=== PATIENT | male | born 1985 | race Caucasian/White ===

== ENCOUNTER 2017-05-15 12:58 | Emergency (ER) | payer OTHER ==
[2017-05-15 13:12] VITALS: BP 136/77
--- NOTE | 2017-05-15 13:58 | UC ---
Laceration HPI - HPI Summary HPI Summary: The patient comes in today for: 1. Laceration of the thenar eminence of the left thumb. Onset: 2 hours ago. Palliative/provocative: Nothing. Quality: No pain. Region: Left thenar eminence. Severity: 0/10 Time: constant. Associated symptoms: Numbness: None. He has full range of motion of his thumb. Tetanus vaccine: He has not had one since age 12. * - History Of Current Complaint Chief Complaint: UCLaceration Stated Complaint: LEFT HAND LACERATION Time Seen by Provider: 05/15/17 13:52 Hx Obtained From: Patient, Family/[employer] - Allergies/Home Medications Allergies/Adverse Reactions: Allergies Allergy/AdvReac Type Severity Reaction Status Date / Time No Known Allergies Allergy Verified 05/15/17 13:06 Home Medications: Home Medications NK [No Home Medications Reported] 05/15/17 [History Confirmed 05/15/17] PMH/Surg Hx/FS Hx/Imm Hx Previously Healthy: Yes - Surgical History Surgical History: None - Family History Known Family History: Positive: Hypertension, Diabetes - Social History Lives: With Family Alcohol Use: Occasionally Substance Use Type: None Smoking Status (MU): Light Every Day Tobacco Smoker Type: Cigarettes Amount Used/How Often: 1 pack every 3 days - Immunization History Most Recent Tetanus Shot: age 12 Review of Systems Constitutional: Negative Skin: Negative Eyes: Negative ENT: Negative Respiratory: Negative Cardiovascular: Negative Gastrointestinal: Negative Genitourinary: Negative All Other Systems Reviewed And Are Negative: Yes Physical Exam Triage Information Reviewed: Yes Appearance: Well-Appearing, No Pain Distress, Well-Nourished Vital Signs: Initial Vital Signs Temp 98.8 F 05/15/17 13:07 Pulse 82 05/15/17 13:07 Resp 16 05/15/17 13:07 BP 136/77 05/15/17 13:07 Pulse Ox 100 05/15/17 13:07 Vital Signs Reviewed: Yes Eyes: Positive: Conjunctiva Clear. Negative: Discharge ENT: Positive: Hearing grossly normal. Negative: Pharyngeal erythema, Nasal congestion, Nasal drainage, TM bulging, TM dull, TM red, Tonsillar swelling, Tonsillar exudate Dental: Negative: Gross Decay/Caries @, Dental Fracture @ Neck: Positive: Supple, Nontender, No Lymphadenopathy. Negative: Nuchal Rigidity Respiratory: Positive: Chest non-tender, Lungs clear, No respiratory distress, No accessory muscle use. Negative: Rhonchi, Wheezing Cardiovascular: Positive: RRR, No Murmur Abdomen Description: Positive: Nontender, No Organomegaly, Soft. Negative: Distended, Guarding Musculoskeletal: Positive: Strength Intact, ROM Intact, No Edema Neurological: Positive: Alert, Muscle Tone Normal Psychological: Positive: Age Appropriate Behavior, Consolable Skin: Positive: Other - Laceration of the left thenar eminence. Laceration Repair - Laceration Repair 1 Description: Linear Laceration Size After Repair: Length (cm) - 1, Width (mm) - 3, Depth (mm) - 3 Anesthesia Used: 2.0% Lido Additive Used (in ml): Epi Cleansing Completed Via Routine Prep: Yes Irrigation With Pressure Irrigation Device: Yes Closure Material: Sutures Closure Method: Single Layer Suture Of: Skin Suture Type: Nylon - Four 4-0 sutures in the left thenar eminence. Laceration Course/Dx - Differential Dx - Laceration/Wound Provider Diagnoses: Laceration of the left thenar eminence Discharge - Discharge Plan Condition: Stable Disposition: HOME Patient Education Materials: Laceration (ED), Care For Your Stitches (ED) Referrals: Crow Ogden MD [Primary Care Provider] - Additional Instructions: Please see your primary care provider or us in 12-14 days to remove your sutures. Inspect the wound daily cleaning with hydrogen peroxide and a Q-tip. Inspect for increasing redness, soreness, drainage and swelling. If these get worse, please be seen again for re- evaluation. If you do well, you may return when the sutures need to be taken out. After cleaning and inspecting, please apply Polysporin anti-bacterial ointment and a non-stick dressing until the next day.
[2017-05-15] MEDS ORDERED: Tetan/Diph/Pertus SYR(Tdap)* 0.5 ML SYR(BOOSTRIX) use SYR IM ONE (13:59)
[2017-05-15] MEDS ORDERED: Lidocaine 2% W/EPI 1:100,000* 20 ML MDV INJ ONE (14:05)
== END 2017-05-15 15:00 | disposition home or self-care (01) ==
LOC: UCCORT 12:58
DX: S61.012A Laceration without foreign body of left thumb without damage to nail, initial encounter (principal); X58.XXXA Exposure to other specified factors, initial encounter; Z23 Encounter for immunization; F17.210 Nicotine dependence, cigarettes, uncomplicated
CPT/HCPCS: 12001; 90471; 90715; 99201; G0463

== ENCOUNTER 2022-09-01 12:44 | Inpatient (IN) ==
[2022-09-01 13:21] LABS: PCO2 Arterial 68 mmHg (35-45); PO2 Arterial 85 mmHg (80-100)
[2022-09-01 13:27] LABS: ABS Eosinophils 0.1 10^3/ul (0-0.6); ABS Lymphocytes 1.3 10^3/ul (1.0-4.8); ABS Monocytes 0.8 10^3/ul (0-0.8); ABS Neutrophils 7.8 10^3/ul (1.5-7.7); Eosinophil % 0.9 %; Hematocrit 47 % (42-52); Hemoglobin 14.5 g/dL (14.0-18.0); Lymphocyte % 13.2 %; Mean Corpuscular HGB Conc 31 g/dL (31-36); Mean Corpuscular Hemoglobin 28 pg (27-31); Mean Corpuscular Volume 92 fL (80-94); Mean Platelet Volume 7.2 fL (7.4-10.4); Platelet Count 245 10^3/uL (150-450); Red Blood Count 5.12 10^6 /uL (4.18-5.48); Red Cell Distribution Width 16 % (10-15)
[2022-09-01 13:47] LABS: High Sens Troponin Baseline 19 pg/mL (<20)
[2022-09-01 13:53] LABS: ALT 18 U/L (7-52); AST 16 U/L (13-39); Albumin 3.7 g/dL (3.2-5.2); Albumin/Globulin Ratio 1.6 (1-3); Alcohol, S < 13 mg/dL (<13); Alkaline Phosphatase 68 U/L (35-149); Anion Gap 5 mmol/L (2-11); Blood Urea Nitrogen 18 mg/dL (6-24); CO2 Carbon Dioxide 33 mmol/L (22-32); Calcium 8.5 mg/dL (8.6-10.3); Chloride 102 mmol/L (101-111); Globulin 2.3 g/dL (2-4); Glucose 101 mg/dL (70-100); Lipase 15 U/L (11.0-82.0); Magnesium 1.9 mg/dL (1.9-2.7); Potassium 4.6 mmol/L (3.5-5.0); Sodium 140 mmol/L (135-145); eGFR CKD-EPI 81.5 (>60)
[2022-09-01 15:07] LABS: High Sensitivity Troponin 1 Hr 23 pg/mL (<20)
[2022-09-01] MEDS ORDERED: Magnesium Sulfate IV 1GM/100ML 1 GM/100 ML BAG IV ONE (19:06)
[2022-09-01 21:40] LABS: PO2 Arterial 133 mmHg (80-100)
[2022-09-01 21:46] LABS: PCO2 Arterial 84 mmHg (35-45)
[2022-09-01] MEDS ORDERED: LORazepam 2 mg VIAL 1 ml ONE (23:09)
[2022-09-01] MEDS ORDERED: LORazepam 2 mg VIAL 1 ml IV PUSH ONE (23:10)
[2022-09-01 23:39] LABS: PO2 Arterial 83 mmHg (80-100)
[2022-09-01 23:45] LABS: PCO2 Arterial 100 mmHg (35-45)
[2022-09-02] MEDS: Albuterol/Ipratropium NEB.SOL (2.5/0.5 MG) 3 ML NEB.SOLN INH SCH ×5 (01:33→09:24)
[2022-09-02 02:42] LABS: PO2 Arterial 95 mmHg (80-100)
[2022-09-02 02:44] LABS: PCO2 Arterial 75 mmHg (35-45)
[2022-09-02] MEDS ORDERED: methylPREDNISolone SOD SUCC 125 mg 2 ML VIAL IV ONE (02:52)
[2022-09-02 06:33] LABS: PO2 Arterial 105 mmHg (80-100)
[2022-09-02 06:36] LABS: PCO2 Arterial 85 mmHg (35-45)
[2022-09-02] MEDS ORDERED: Simvastatin 10 mg TAB (NF) PO SCH (09:00)
[2022-09-02] MEDS ORDERED: Albuterol/Ipratropium NEB.SOL (2.5/0.5 MG) 3 ML NEB.SOLN INH PRN (09:11)
[2022-09-02 10:36] LABS: PCO2 Arterial 66 mmHg (35-45); PO2 Arterial 148 mmHg (80-100)
[2022-09-02 11:25] LABS: ABS Lymphocytes 0.3 10^3/ul (1.0-4.8); ABS Monocytes 0.1 10^3/ul (0-0.8); ABS Neutrophils 9.3 10^3/ul (1.5-7.7); Hematocrit 46 % (42-52); Hemoglobin 13.9 g/dL (14.0-18.0); Lymphocyte % 3.1 %; Mean Corpuscular HGB Conc 30 g/dL (31-36); Mean Corpuscular Hemoglobin 28 pg (27-31); Mean Corpuscular Volume 92 fL (80-94); Mean Platelet Volume 7.2 fL (7.4-10.4); Platelet Count 227 10^3/uL (150-450); Red Blood Count 4.96 10^6 /uL (4.18-5.48); Red Cell Distribution Width 16 % (10-15); White Blood Count 9.7 10^3/uL (3.5-10.8)
[2022-09-02 12:02] LABS: Albumin 3.7 g/dL (3.2-5.2); Albumin/Globulin Ratio 1.6 (1-3); Calcium 8.8 mg/dL (8.6-10.3); Globulin 2.3 g/dL (2-4); Magnesium 1.9 mg/dL (1.9-2.7); Total Bilirubin 0.8 mg/dL (0.2-1.0); eGFR CKD-EPI 86.8 (>60)
[2022-09-02 12:03] LABS: Potassium 5.2 mmol/L (3.5-5.0)
[2022-09-02 12:16] LABS: TSH Ultra Thyroid Stim Horm 1.2 mcIU/mL (0.34-5.60)
[2022-09-02] MEDS ORDERED: Magnesium Sulfate 2 gm BAG 2 GM/50 ML BAG IVPB ONE (14:18)
[2022-09-02] MEDS ORDERED: Dextrose 50% Syringe 50 ml 25 GM/50 ML SYRINGE IV PUSH ONE (14:30)
[2022-09-02] MEDS: Heparin 5000 UNITS/ML 1 mL VIAL SUBCUT SCH (21:20)
[2022-09-02 23:14] LABS: Calcium 8.9 mg/dL (8.6-10.3); eGFR CKD-EPI 93.8 (>60)
[2022-09-02 23:15] LABS: Potassium 5.1 mmol/L (3.5-5.0)
[2022-09-03 04:37] LABS: ABS Lymphocytes 1.1 10^3/ul (1.0-4.8); ABS Monocytes 1.1 10^3/ul (0-0.8); ABS Neutrophils 10.4 10^3/ul (1.5-7.7); Eosinophil % 0.1 %; Hematocrit 47 % (42-52); Hemoglobin 14.3 g/dL (14.0-18.0); Lymphocyte % 8.4 %; Mean Corpuscular HGB Conc 31 g/dL (31-36); Mean Corpuscular Hemoglobin 28 pg (27-31); Mean Corpuscular Volume 92 fL (80-94); Mean Platelet Volume 7.2 fL (7.4-10.4); Platelet Count 242 10^3/uL (150-450); Red Blood Count 5.05 10^6 /uL (4.18-5.48); Red Cell Distribution Width 16 % (10-15); White Blood Count 12.7 10^3/uL (3.5-10.8)
[2022-09-03 04:59] LABS: Blood Urea Nitrogen 24 mg/dL (6-24); CO2 Carbon Dioxide 33 mmol/L (22-32); Calcium 9.1 mg/dL (8.6-10.3); Chloride 101 mmol/L (101-111); Glucose 119 mg/dL (70-100); Magnesium 2.1 mg/dL (1.9-2.7); Sodium 139 mmol/L (135-145); eGFR CKD-EPI 82.3 (>60)
[2022-09-03 05:02] LABS: Anion Gap 5 mmol/L (2-11)
[2022-09-03] MEDS: Heparin 5000 UNITS/ML 1 mL VIAL SUBCUT SCH ×3 (06:01→21:57)
[2022-09-03 06:13] LABS: PCO2 Arterial 83 mmHg (35-45); PO2 Arterial < 38 mmHg (80-100)
[2022-09-03] MEDS ORDERED: SODIUM ZIRCONIUM CYCLOSILICATE 5 GM PACKET PO SCH ×2 (09:00)
[2022-09-03 18:15] LABS: Calcium 8.8 mg/dL (8.6-10.3); eGFR CKD-EPI 81.5 (>60)
[2022-09-03 18:21] LABS: Potassium 5.4 mmol/L (3.5-5.0)
[2022-09-03] MEDS: SODIUM ZIRCONIUM CYCLOSILICATE 5 GM PACKET PO SCH (20:49)
[2022-09-04] MEDS: Pantoprazole VIAL 40 MG VIAL IV SCH (03:10)
[2022-09-04] MEDS ORDERED: Ondansetron 4 mg VIAL 2 MG/ML 2 ml VIAL IV ONE ×2 (04:19→06:33)
[2022-09-04 05:59] LABS: Hematocrit 49 % (42-52); Mean Corpuscular HGB Conc 31 g/dL (31-36); Mean Corpuscular Hemoglobin 28 pg (27-31); Mean Corpuscular Volume 92 fL (80-94); Mean Platelet Volume 7.6 fL (7.4-10.4); Platelet Count 241 10^3/uL (150-450); Red Blood Count 5.37 10^6 /uL (4.18-5.48); Red Cell Distribution Width 16 % (10-15); White Blood Count 11.4 10^3/uL (3.5-10.8)
[2022-09-04] MEDS: Heparin 5000 UNITS/ML 1 mL VIAL SUBCUT SCH ×3 (05:59→21:00)
[2022-09-04 06:01] LABS: Venous Bicarbonate HCO3 29.3 mmol/L (24-28)
[2022-09-04 07:02] LABS: eGFR CKD-EPI 80.7 (>60)
[2022-09-04 07:04] LABS: Potassium 5.5 mmol/L (3.5-5.0)
[2022-09-04] MEDS ORDERED: Al Hydrox/Mg Hydrox/Simet LIQ 30 ML UDC PO PRN (08:18)
[2022-09-04] MEDS: Famotidine IV 10 MG/ML 2 ml VIAL (20 mg) IV SLOW PU SCH (09:37)
[2022-09-04] MEDS: SODIUM ZIRCONIUM CYCLOSILICATE 5 GM PACKET PO SCH ×2 (10:26→15:18)
[2022-09-04] MEDS: SODIUM ZIRCONIUM CYCLOSILICATE 10 GM PACKET PO SCH (21:00)
[2022-09-05 05:19] LABS: ABS Basophils 0.1 10^3/ul (0-0.2); ABS Eosinophils 0.1 10^3/ul (0-0.6); ABS Lymphocytes 1.1 10^3/ul (1.0-4.8); ABS Monocytes 1.2 10^3/ul (0-0.8); ABS Neutrophils 8.1 10^3/ul (1.5-7.7); Eosinophil % 0.9 %; Hematocrit 50 % (42-52); Hemoglobin 15.6 g/dL (14.0-18.0); Lymphocyte % 10.3 %; Mean Corpuscular HGB Conc 31 g/dL (31-36); Mean Corpuscular Hemoglobin 28 pg (27-31); Mean Corpuscular Volume 91 fL (80-94); Mean Platelet Volume 7.5 fL (7.4-10.4); Nucleated Red Blood Cells % 0.1; Platelet Count 244 10^3/uL (150-450); Red Blood Count 5.48 10^6 /uL (4.18-5.48); Red Cell Distribution Width 16 % (10-15); White Blood Count 10.5 10^3/uL (3.5-10.8)
[2022-09-05 05:56] LABS: ALT 74 U/L (7-52); Albumin 3.6 g/dL (3.2-5.2); Albumin/Globulin Ratio 1.6 (1-3); Alkaline Phosphatase 85 U/L (35-149); Blood Urea Nitrogen 36 mg/dL (6-24); CO2 Carbon Dioxide 32 mmol/L (22-32); Calcium 8.9 mg/dL (8.6-10.3); Chloride 96 mmol/L (101-111); Globulin 2.3 g/dL (2-4); Glucose 108 mg/dL (70-100); Sodium 136 mmol/L (135-145); Total Protein 5.9 g/dL (6.4-8.9); eGFR CKD-EPI 79.1 (>60)
[2022-09-05 06:00] LABS: Anion Gap 8 mmol/L (2-11)
[2022-09-05 06:24] LABS: Potassium, Whole Blood 4.7 mmol/L (3.4-4.5)
[2022-09-05] MEDS: Heparin 5000 UNITS/ML 1 mL VIAL SUBCUT SCH ×3 (06:28→21:17)
[2022-09-05] MEDS: Famotidine IV 10 MG/ML 2 ml VIAL (20 mg) IV SLOW PU SCH (08:07)
[2022-09-05] MEDS: Pantoprazole VIAL 40 MG VIAL IV SCH (08:09)
[2022-09-05] MEDS: SODIUM ZIRCONIUM CYCLOSILICATE 10 GM PACKET PO SCH ×3 (08:11→21:16)
[2022-09-06 06:15] LABS: ABS Basophils 0.1 10^3/ul (0-0.2); ABS Eosinophils 0.2 10^3/ul (0-0.6); ABS Lymphocytes 1.1 10^3/ul (1.0-4.8); ABS Monocytes 1.3 10^3/ul (0-0.8); ABS Neutrophils 8.8 10^3/ul (1.5-7.7); Eosinophil % 1.4 %; Hematocrit 46 % (42-52); Hemoglobin 14.2 g/dL (14.0-18.0); Lymphocyte % 9.7 %; Mean Corpuscular HGB Conc 31 g/dL (31-36); Mean Corpuscular Hemoglobin 28 pg (27-31); Mean Corpuscular Volume 91 fL (80-94); Mean Platelet Volume 7.8 fL (7.4-10.4); Platelet Count 205 10^3/uL (150-450); Red Blood Count 5.11 10^6 /uL (4.18-5.48); Red Cell Distribution Width 16 % (10-15); White Blood Count 11.4 10^3/uL (3.5-10.8)
[2022-09-06 06:28] LABS: Venous Bicarbonate HCO3 31.4 mmol/L (24-28)
[2022-09-06 07:08] LABS: Calcium 8.5 mg/dL (8.6-10.3); Potassium 4.3 mmol/L (3.5-5.0); eGFR CKD-EPI 84.9 (>60)
[2022-09-06] MEDS: Pantoprazole VIAL 40 MG VIAL IV SCH (08:42)
[2022-09-06] MEDS: Famotidine IV 10 MG/ML 2 ml VIAL (20 mg) IV SLOW PU SCH (08:43)
[2022-09-06] MEDS: Heparin 5000 UNITS/ML 1 mL VIAL SUBCUT SCH ×3 (08:43→20:00)
[2022-09-06 08:47] LABS: Phosphorus 3.9 mg/dL (2.5-5.0)
[2022-09-06] MEDS: SODIUM ZIRCONIUM CYCLOSILICATE 10 GM PACKET PO SCH (08:57)
[2022-09-06] MEDS: Psyllium PAK PO SCH ×2 (12:24→20:03)
[2022-09-07 04:50] LABS: ABS Eosinophils 0.2 10^3/ul (0-0.6); ABS Lymphocytes 1.3 10^3/ul (1.0-4.8); ABS Monocytes 1.1 10^3/ul (0-0.8); ABS Neutrophils 7.6 10^3/ul (1.5-7.7); Hematocrit 45 % (42-52); Hemoglobin 13.9 g/dL (14.0-18.0); Lymphocyte % 12.3 %; Mean Corpuscular HGB Conc 31 g/dL (31-36); Mean Corpuscular Hemoglobin 28 pg (27-31); Mean Corpuscular Volume 91 fL (80-94); Mean Platelet Volume 7.9 fL (7.4-10.4); Platelet Count 205 10^3/uL (150-450); Red Blood Count 4.93 10^6 /uL (4.18-5.48); Red Cell Distribution Width 16 % (10-15); White Blood Count 10.2 10^3/uL (3.5-10.8)
[2022-09-07] MEDS: Heparin 5000 UNITS/ML 1 mL VIAL SUBCUT SCH ×3 (05:10→22:26)
[2022-09-07 05:23] LABS: Blood Urea Nitrogen 29 mg/dL (6-24); CO2 Carbon Dioxide 37 mmol/L (22-32); Calcium 8.6 mg/dL (8.6-10.3); Chloride 96 mmol/L (101-111); Glucose 91 mg/dL (70-100); Magnesium 1.9 mg/dL (1.9-2.7); Sodium 139 mmol/L (135-145); eGFR CKD-EPI 93.8 (>60)
[2022-09-07 05:29] LABS: Anion Gap 6 mmol/L (2-11)
[2022-09-07 06:08] LABS: Potassium, Whole Blood 4.2 mmol/L (3.4-4.5)
[2022-09-07] MEDS ORDERED: Magnesium Sulfate IV 1GM/100ML 1 GM/100 ML BAG IV ONE (07:37)
[2022-09-07] MEDS: Famotidine IV 10 MG/ML 2 ml VIAL (20 mg) IV SLOW PU SCH (08:26)
[2022-09-07] MEDS: Psyllium PAK PO SCH ×2 (08:26→22:27)
[2022-09-08] MEDS: Heparin 5000 UNITS/ML 1 mL VIAL SUBCUT SCH ×3 (05:48→21:32)
[2022-09-08 07:06] LABS: ABS Eosinophils 0.2 10^3/ul (0-0.6); ABS Lymphocytes 1.2 10^3/ul (1.0-4.8); ABS Monocytes 1.1 10^3/ul (0-0.8); ABS Neutrophils 7.5 10^3/ul (1.5-7.7); Eosinophil % 2.1 %; Hematocrit 45 % (42-52); Hemoglobin 13.8 g/dL (14.0-18.0); Lymphocyte % 11.6 %; Mean Corpuscular HGB Conc 31 g/dL (31-36); Mean Corpuscular Hemoglobin 28 pg (27-31); Mean Corpuscular Volume 91 fL (80-94); Mean Platelet Volume 8.4 fL (7.4-10.4); Nucleated Red Blood Cells % 0.1; Platelet Count 196 10^3/uL (150-450); Red Blood Count 4.92 10^6 /uL (4.18-5.48); Red Cell Distribution Width 15 % (10-15)
[2022-09-08 07:21] LABS: Calcium 8.7 mg/dL (8.6-10.3); Magnesium 1.9 mg/dL (1.9-2.7); Potassium 4.3 mmol/L (3.5-5.0); eGFR CKD-EPI 93.8 (>60)
[2022-09-08] MEDS: Psyllium PAK PO SCH ×2 (07:58→21:31)
[2022-09-08] MEDS: Famotidine IV 10 MG/ML 2 ml VIAL (20 mg) IV SLOW PU SCH (07:58)
[2022-09-08] MEDS ORDERED: Furosemide 20 mg/2 ml IV VIAL IV ONE (11:53)
[2022-09-08] MEDS ORDERED: Perflutren Lipid Microsphere 3 ML VIAL ONE (15:53)
[2022-09-09] MEDS: Heparin 5000 UNITS/ML 1 mL VIAL SUBCUT SCH ×3 (06:05→20:58)
[2022-09-09] MEDS: Psyllium PAK PO SCH ×2 (08:42→20:59)
[2022-09-09] MEDS ORDERED: Furosemide 20 mg/2 ml IV VIAL IV ONE (10:07)
[2022-09-10] MEDS: Heparin 5000 UNITS/ML 1 mL VIAL SUBCUT SCH ×2 (05:56→14:21)
[2022-09-10] MEDS ORDERED: Furosemide 40 mg/4 ml IV VIAL IV ONE (09:38)
[2022-09-10] MEDS: Psyllium PAK PO SCH (10:45)
[2022-09-11] MEDS: Psyllium PAK PO SCH ×3 (00:09→20:07)
[2022-09-11] MEDS: Heparin 5000 UNITS/ML 1 mL VIAL SUBCUT SCH ×3 (00:10→14:45)
[2022-09-11 07:05] LABS: ABS Eosinophils 0.2 10^3/ul (0-0.6); ABS Lymphocytes 1.2 10^3/ul (1.0-4.8); ABS Neutrophils 5.4 10^3/ul (1.5-7.7); Eosinophil % 2.7 %; Hematocrit 45 % (42-52); Hemoglobin 14.3 g/dL (14.0-18.0); Lymphocyte % 15.1 %; Mean Corpuscular HGB Conc 32 g/dL (31-36); Mean Corpuscular Hemoglobin 29 pg (27-31); Mean Corpuscular Volume 90 fL (80-94); Nucleated Red Blood Cells % 0.2; Platelet Count 211 10^3/uL (150-450); Red Blood Count 4.98 10^6 /uL (4.18-5.48); Red Cell Distribution Width 16 % (10-15); White Blood Count 7.8 10^3/uL (3.5-10.8)
[2022-09-11 09:11] LABS: Potassium 4.2 mmol/L (3.5-5.0); eGFR CKD-EPI 95.9 (>60)
[2022-09-11] MEDS: Neomycin/Polym/Bacit TOP OINT 15 GM TOPICAL SCH ×2 (09:26→20:36)
[2022-09-11] MEDS ORDERED: Furosemide 40 mg/4 ml IV VIAL IV ONE (16:42)
[2022-09-11] MEDS ORDERED: Furosemide 40 mg/4 ml IV VIAL IV SCH (21:00)
[2022-09-12] MEDS: Heparin 5000 UNITS/ML 1 mL VIAL SUBCUT SCH ×4 (00:32→22:20)
[2022-09-12] MEDS: Psyllium PAK PO SCH ×2 (08:39→22:20)
[2022-09-12] MEDS: Neomycin/Polym/Bacit TOP OINT 15 GM TOPICAL SCH ×2 (08:39→23:33)
[2022-09-12 10:01] LABS: Potassium 4.2 mmol/L (3.5-5.0); eGFR CKD-EPI 90.6 (>60)
[2022-09-12] MEDS: CMCS: diPHENhydraMINE CREAM 2%(NF) 28 gm TUBE TOPICAL SCH ×3 (10:25→22:20)
[2022-09-12] MEDS ORDERED: Furosemide 40 mg/4 ml IV VIAL IV ONE (14:00)
[2022-09-13] MEDS: Heparin 5000 UNITS/ML 1 mL VIAL SUBCUT SCH ×3 (05:11→21:31)
[2022-09-13] MEDS: CMCS: diPHENhydraMINE CREAM 2%(NF) 28 gm TUBE TOPICAL SCH ×2 (08:26→13:27)
[2022-09-13] MEDS: Psyllium PAK PO SCH ×2 (08:27→21:31)
[2022-09-13] MEDS: Neomycin/Polym/Bacit TOP OINT 15 GM TOPICAL SCH (08:27)
[2022-09-13] MEDS ORDERED: Furosemide 40 mg/4 ml IV VIAL IV ONE (09:14)
[2022-09-13] MEDS ORDERED: Silver Sulfadiazine 1% 20 gm TUBE TOPICAL SCH (11:00)
[2022-09-14] MEDS: Heparin 5000 UNITS/ML 1 mL VIAL SUBCUT SCH (05:41)
[2022-09-14] MEDS: Psyllium PAK PO SCH (07:49)
[2022-09-14] MEDS: Senna TAB 8.6 mg TAB PO SCH ×2 (07:49→08:18)
[2022-09-14 11:20] VITALS: BP 143/80
== END 2022-09-14 13:12 | disposition home or self-care (01) | DRG 143 ==
LOC: ED 12:44 → EDHOLD 16:26 → SUATTDRO 16:26 → ICU 09-02 07:13 → MED 09-07 16:28
PROVIDERS: ADMIT Surgery Surgical Critical Care; ATTEND Internal Medicine